=== PATIENT | female | born 1955 | race Caucasian/White ===

== ENCOUNTER → 2019-03-09 | Outpatient (REF) ==
--- NOTE | 2019-03-09 15:05 | Diagnostic Imaging Report ---
INDICATION: Employment screening. TECHNIQUE: Two view chest at 2:44 PM. CORRELATION STUDY: None. FINDINGS: Extensive cervical, thoracic, and lumbar spinal fixation hardware is noted throughout the entirety of the thoracic spine. This includes transpedicular screws and interconnecting rods. There is an essentially vertebra plana at what appears to be the T7 vertebral body. The heart size, mediastinal configuration, and pulmonary vasculature are within normal limits. The lungs are clear with no consolidating infiltrate. There is no significant pleural effusion or pneumothorax. The visualized osseous structures are unremarkable. IMPRESSION: Negative for acute abnormality of the chest. Dictated by: Dictated on workstation # [id number]
== END ==
LOC: OCC 14:32
PROVIDERS: ATTEND Family Medicine
DX: Z02.1 Encounter for pre-employment examination (principal)
CPT/HCPCS: 71046